=== PATIENT | female | born 1985 ===

== ENCOUNTER → 2017-08-22 | Outpatient (CLI) | payer OTHER ==
[2017-02-22 05:00] VITALS: BMI 37.4
[~2017-08-22] MED LIST: B-12 INJECTION; BIRTH CONTROL PILL; CALC-577 PO; GADOBENATE 529MG/1ML 15ML VIAL IVP ONE; IBUP800T37 PO; KET10 PO; LOR5/325 PO; LOR7.5/325 PO; PREN-127 PO
--- NOTE | 2017-08-22 11:52 | RADIOLOGY IMAGING REPORT ---
FACILITY[place] [facility] [place]IENT NAME: Fransisca Pastrana : 1985 MR: [id number] V: [id number] EXAM DATE: ORDERING PHYSICIAN: [facility] [place] TECHNOLOGIST: Location: [facility] - [place] Patient: Fransisca Pastrana : 1985 Visit/Account:[id number] Date of Sevice: 08/22/2017 EXAMINATION: MRI brain without IV contrast MRI brain with IV contrast HISTORY: Papilledema, vision changes and headache. COMPARISON: None. TECHNIQUE: Multi-planar, multi-sequence brain MRI was performed before and after IV gadolinium. CONTRAST: 15 mL of IV MultiHance gadolinium. FINDINGS: Brain volume: Normal. Sagittal midline structures: Sagittal midline structures are normally formed. The cerebellar tonsils are normal in position. Ventricles: Normal. Acute ischemic changes: No diffusion restriction present to suggest acute ischemia. Hemorrhage: No acute hemorrhage or hemosiderin staining. Masses/edema: None. Enhancement: There is no abnormal intracranial enhancement. Roberson-white: Negative. White matter: Normal. Vessels: Normal. Extra-axial: None. Calvarium/scalp: Negative. Skull base: Negative. Visualized sinuses/orbits: Mild mucosal thickening in the bilateral ethmoid air cells and 1 cm mucou s retention cyst in the right maxillary sinus. Mild nasal septal deviation to the right. Visualized upper neck: Negative. IMPRESSION: 1. No acute infarct, hemorrhage or intracranial mass lesion. No explanation for papilledema. 2. Minimal nonobstructive inflammation of the bilateral ethmoid air cells and 1 cm mucous retention cyst in the right maxillary sinus. Report Dictated By: Celine Swanson MD at 08/22/2017 11:47 AM Report E-Signed By: Celine Swanson MD at 08/22/2017 11:50 AM WSN:[id number]
--- NOTE | 2017-08-22 12:14 | RADIOLOGY IMAGING REPORT ---
FACILITY: [facility] PATIENT NAME: Fransisca Pastraan : 1985 MR: [id number] V: [id number] EXAM DATE: ORDERING PHYSICIAN: [facility] TECHNOLOGIST: Location: [facility] - [place] Patient: Fransisca Pastrana : 1985 Visit/Account:[id number] Date of Sevice: 08/22/2017 EXAMINATION: MRI orbits without IV contrast MRI orbits with IV contrast HISTORY: Papilledema, vision changes and headache. COMPARISON: Brain MRI from 08/22/2017. TECHNIQUE: Multi-planar, multi-sequence orbital MRI was performed before and after IV gadolinium. On ly limited imaging of the whole brain was performed. CONTRAST: 15 mL of IV MultiHance gadolinium. FINDINGS: RIGHT ORBIT Globe: Negative. Optic nerve/intraconal space: Slight flattening of the optic disc without other abnormality of the op tic nerve. Extra-ocular muscles/extraconal space: Negative. Lacrimal gland: Negative. Subcutaneous tissues: Negative. LEFT ORBIT: Globe: Negative. Optic nerve/intraconal space: Slight flattening of the optic disc without other abnormality of the op tic nerve. Extra-ocular muscles/extraconal space: Negative. Lacrimal gland: Negative. Subcutaneous tissues: Negative. Visualized brain: Negative. IMPRESSION: 1. Slight flattening of the bilateral optic discs. This can be seen with idiopathic intracranial hy pertension (pseudotumor cerebri), although it is not specific. 2. No mass lesion or abnormal enhancement in either orbit. Report Dictated By: Celine Swanson MD at 08/22/2017 12:07 PM Report E-Signed By: Celine Swanson MD at 08/22/2017 12:09 PM WSN:[id number]
== END ==
LOC: MRI 01:33
DX: H47.10 Unspecified papilledema (principal); J34.1 Cyst and mucocele of nose and nasal sinus
CPT/HCPCS: 70543; 70553; A9577

== ENCOUNTER → 2017-09-03 | Outpatient (CLI) | payer OTHER ==
[2017-02-22 05:00] VITALS: BMI 37.4
[~2017-09-03] MED LIST changes: +CYAN100088 SUBQ; -GADOBENATE 529MG/1ML 15ML VIAL IVP ONE; +Mirena IUD
[2017-09-03 12:06] LABS: PLATELET COUNT, AUTOMATED 309 K/uL (150-450)
--- NOTE | 2017-09-03 12:06 | EKG ---
FACILITY: [facility] - [place] PATIENT NAME: LENNY LAM : [id number] MR: [id number] V: [id number] EXAM DATE: ORDERING PHYSICIAN: ESTER LICEA TECHNOLOGIST: ROLY LINTON Test Reason : INTRACRANIAL HTN Blood Pressure : / mmHG Vent. Rate : 085 BPM Atrial Rate : 085 BPM P-R Int : 138 ms QRS Dur : 086 ms QT Int : 394 ms P-R-T Axes : 065 064 044 degrees QTc Int : 468 ms Normal sinus rhythm Normal ECG No previous ECGs available Referred By: Confirmed By:
[2017-09-03 12:21] LABS: INR 0.94
== END ==
LOC: RESP 11:40
PROVIDERS: ATTEND Emergency Medicine
DX: G93.2 Benign intracranial hypertension (principal)
CPT/HCPCS: 36415; 82040; 82247; 82310; 82374; 82435; 82565; 82607; 82947; 84075; 84132; 84155; 84295; 84443; 84450; 84460; 84520; 85025; 85379; 85610; 85730

== ENCOUNTER → 2017-09-04 | Outpatient (CLI) | payer OTHER ==
[2017-02-22 05:00] VITALS: BMI 37.4
--- NOTE | 2017-09-04 11:01 | RADIOLOGY IMAGING REPORT ---
FACILITY: [facility] PATIENT NAME: Fransisca Pastrana : 1985 MR: [id number] V: [id number] EXAM DATE: ORDERING PHYSICIAN: ESTER LICEA TECHNOLOGIST: Location: [facility] - [place], [place] Patient: Fransisca Pastrana : 1985 Visit/Account:[id number] Date of Sevice: 09/04/2017 EXAMINATION: MRV of the head HISTORY: Intracranial hypertension. COMPARISON: Brain and orbit MRI from 08/22/2017. TECHNIQUE: 2D [id number] angiography was performed in the coronal and axial planes of the intracranial venou s structures without IV gadolinium. The exam was tailored for assessment of the intracranial venous structures. Only limited sequences were obtained of the rest of the brain. FINDINGS: Dural venous sinuses: Normal flow related enhancement. The right transverse sinus is dominant with a hypoplastic left transverse sinus, which is a normal variant. There is no focal stenosis in the dural venous sinuses. Deep cerebral veins: Normal flow related enhancement. Superficial cortical veins: Normal flow related enhancement. There is a prominent left vein of Delmy, on the same side as the hypoplastic left transverse sinus, which is a normal variant. Additional non-angiographic findings: None significant. IMPRESSION: No evidence of cerebral venous occlusion. Report Dictated By: Celine Swanson MD at 09/04/2017 10:53 AM Report E-Signed By: Celine Swanson MD at 09/04/2017 10:57 AM WSN:[id number]
== END ==
LOC: MRI 06:14
PROVIDERS: ATTEND Emergency Medicine
DX: G93.2 Benign intracranial hypertension (principal)
CPT/HCPCS: 70544

== ENCOUNTER → 2018-02-24 | Outpatient (CLI) | payer OTHER ==
[2017-02-22 05:00] VITALS: BMI 37.4
[~2018-02-24] MED LIST changes: +ACET250T19 PO; +CYAN1000 IJ
== END ==
LOC: LAB 16:33
PROVIDERS: ATTEND Emergency Medicine
DX: Z79.899 Other long term (current) drug therapy (principal); R79.89 Other specified abnormal findings of blood chemistry
CPT/HCPCS: 36415; 82310; 82374; 82435; 82565; 82728; 82947; 83540; 83550; 84132; 84295; 84520